=== PATIENT | female | born 1985 | race American Indian/Alaskan Native ===

== ENCOUNTER 2017-05-13 10:00 | Outpatient (CLI) | payer MEDICAID ==
--- NOTE | 2017-05-13 14:33 | Mammography Report ---
BILATERAL DIGITAL SCREENING MAMMOGRAM with CAD :05/13/17 10:00:00 CLINICAL: Baseline screening.31-year-old with a family history of early breast cancer. History of breast cancer in her mother, aunts and grandmother FINDINGS: The breasts are extremely dense, which lowers the sensitivity of mammography. No mass, architectural distortion or suspicious calcifications. IMPRESSION: No mammographic evidence of malignancy. BI-RADS CATEGORY: 2 -- Benign RECOMMENDATION: Routine mammographic screening. Depending upon the age of onset of breast cancer in her family, she may be a candidate for beginning routine annual screening. ACR BI-RADS MAMMOGRAPHIC CODES: 0 = Needs additional imaging evaluation; 1 = Negative; 2 = Benign; 3 = Probably benign; 4 = Suspicious; 5 = Malignant; 6 = Known biopsy-proven malignancy COMMENT: 1. Dense breast tissue, i.e., adenosis, fibrocystic changes, etc., may obscure an underlying neoplasm. 2. Approximately 10% of cancers are not detected with mammography. 3. A negative mammography report should not delay biopsy if a clinically suspicious mass is present. Patient follow-up letters are generated by our [employer] application.
== END 2017-05-13 10:01 | disposition home or self-care (01) ==
LOC: SPVWC 10:00
PROVIDERS: ATTEND Family Medicine
DX: Z12.31 Encounter for screening mammogram for malignant neoplasm of breast (principal); E78.00 Pure hypercholesterolemia, unspecified; F17.200 Nicotine dependence, unspecified, uncomplicated; F12.90 Cannabis use, unspecified, uncomplicated; Z80.3 Family history of malignant neoplasm of breast
CPT/HCPCS: 77067; G0202

== ENCOUNTER 2021-05-09 17:48 | Outpatient (CLI) | payer MEDICAID ==
[2021-05-09 21:49] LABS: Bilirubin,Urine NEG (Negative); Blood,Urine NEG (Negative); Color,Urine Yellow (Yellow); Mucus,Urine FEW /HPF; Urobilinogen,Urine < 2.0 mg/dL (<2.0)
[2021-05-09 23:22] LABS: Hematocrit 34.2 % (30.3-42.9); Hemoglobin 11.3 gm/dl (10.1-14.3); Mean Corpuscular HGB Conc 33 % (30-34); Mean Corpuscular Volume 90 fl (79-97); Platelet Count 205 K/mm3 (140-440); Red Blood Count 3.82 M/mm3 (3.65-5.03); Red Cell Distribution Width 18.5 % (13.2-15.2)
[2021-05-09 23:34] LABS: Alanine Aminotransferase 8 units/L (7-56)
--- NOTE | 2021-05-09 23:41 | Ultrasound Report ---
ULTRASOUND OBSTETRIC LIMITED ULTRASOUND BIOPHYSICAL PROFILE INDICATION / CLINICAL INFORMATION: Evaluate well-being. High maternal blood pressure. COMPARISON: None available. FINDINGS: BREATHING MOVEMENT = 2 GROSS BODY MOVEMENT = 2 TONE = 2 QUALITATIVE AMNIOTIC FLUID VOLUME = 2 TOTAL BIOPHYSICAL SCORE = 8/8 AMNIOTIC FLUID INDEX (cm) = 14.1 PRESENTATION: Cephalic. HEART RATE (beats per minute): 134 ADDITIONAL FINDINGS: None. IMPRESSION: 1. Biophysical Score = 8/8 Signer Name: Chidi Jurado MD Signed: 05/09/2021 11:36 PM Workstation Name: [id number]
[2021-05-10 00:42] VITALS: BP 116/81
[2021-05-10 11:36] LABS: Uric Acid 3.4 mg/dL (3.5-7.6)
== END 2021-05-10 00:57 | disposition home or self-care (01) ==
LOC: EDSTATUS 20:15 → TRG 20:18 → APU 20:30 → TRG 05-10 00:57
PROVIDERS: ATTEND Obstetrics & Gynecology
DX: O13.3 Gestational [pregnancy-induced] hypertension without significant proteinuria, third trimester (principal); Z3A.35 35 weeks gestation of pregnancy
CPT/HCPCS: 36415; 59025; 76815; 76819; 81001; 82565; 83615; 84450; 84460; 84550; 85027

== ENCOUNTER 2021-05-23 20:06 | Outpatient (CLI) | payer MEDICAID ==
[2021-05-23] MEDS ORDERED: hydrALAZINE 20 MG/1 ML INJ IV ONE (21:35)
--- NOTE | 2021-05-23 22:37 | Ultrasound Report ---
OB Ultrasound Biophysical profile HISTORY: pelvic pain. TECHNIQUE: Grayscale and color imaging performed. COMPARISON: 05/09/2021 ultrasound FINDINGS: There is a single viable intrauterine gestation with cephalic presentation and heart rate o f 137 bpm. ARIE is 9 cm. Placenta is low-lying, within 3 cm of the cervix. The cervix itself measures 3.4 cm in length. On biophysical profile, the fetus received a score of 2 out of 2 for breathing, movement, posture/ton e, and ARIE. Total score was 8 out of 8. IMPRESSION: 1. Single viable intrauterine gestation as above. 2. Low-lying placenta near the cervical os. 3. Normal BPP. Signer Name: Stanley Monroy MD Signed: 05/23/2021 10:32 PM Workstation Name: [id number]
[2021-05-23 22:58] LABS: Basophils % (Auto) 0.6 % (0.0-1.8); Eosinophils # (Auto) 0.1 K/mm3 (0.0-0.4); Eosinophils % (Auto) 1.2 % (0.0-4.3); Hematocrit 35.4 % (30.3-42.9); Hemoglobin 11.6 gm/dl (10.1-14.3); Lymphocytes # (Auto) 1.8 K/mm3 (1.2-5.4); Lymphocytes % (Auto) 26.4 % (13.4-35.0); Mean Corpuscular HGB Conc 33 % (30-34); Mean Corpuscular Volume 90 fl (79-97); Monocytes # (Auto) 0.7 K/mm3 (0.0-0.8); Platelet Count 191 K/mm3 (140-440); Red Blood Count 3.95 M/mm3 (3.65-5.03); Red Cell Distribution Width 18.9 % (13.2-15.2)
[2021-05-23 23:08] LABS: Bacteria,Urine 1+ /HPF (Negative); Bilirubin,Urine NEG (Negative); Blood,Urine NEG (Negative); Color,Urine Straw (Yellow); Protein,Urine <15 mg/dL mg/dL (Negative); Urobilinogen,Urine < 2.0 mg/dL (<2.0)
[2021-05-23 23:20] LABS: Alanine Aminotransferase 10 units/L (7-56)
[2021-05-23 23:26] LABS: Uric Acid 2.8 mg/dL (3.5-7.6)
[2021-05-24 02:35] VITALS: BP 148/92
== END 2021-05-24 03:20 | disposition home or self-care (01) ==
LOC: TRG 20:06 → APU 20:08 → TRG 05-24 03:20
PROVIDERS: ATTEND Obstetrics & Gynecology
DX: Z34.93 Encounter for supervision of normal pregnancy, unspecified, third trimester (principal); Z3A.37 37 weeks gestation of pregnancy
CPT/HCPCS: 36415; 76815; 76819; 81001; 82565; 83615; 84450; 84460; 84550; 85025; 85027; J0360